=== PATIENT | female | born 2000 | race Two or more races ===

== ENCOUNTER 2024-08-17 14:30 | Inpatient (IN) | payer OTHER ==
[~2024-08-17] VITALS: Ht 157.5 cm; Wt 68.9 kg
[2024-08-22] VITALS (10 sets, daily range): BP systolic 104–141; BP diastolic 62–86
[2024-08-22] MEDS ORDERED: PRENATABS RX T1 EACH PO (11:50)
[2024-08-22] MEDS ORDERED: OXYTOCIN 20 UNITS/1000ML RL PIGGYBAG IV ONE ×2 (12:02→14:30)
[2024-08-22] MEDS ORDERED: LIDOCAINE HCL 1% 10ML VIAL ONE (12:02)
[2024-08-22] MEDS ORDERED: ERYTHROMYCIN BASE OPHT 1GM EACH TUBE OP ONE ×2 (12:02→14:30)
[2024-08-22] MEDS ORDERED: CHLORHEXIDINE GLUCONATE 120 ML BOTTLE TOP ONE ×2 (12:02→14:30)
[2024-08-22] MEDS ORDERED: RINGERS SOLUTION,LACTATED 1,000 ML IV SCH (12:15)
[2024-08-22 12:43] LABS: HEMATOCRIT 35.1 % (36.0-45.00); MEAN CELL VOLUME 79.1 fL (80.00-100.00); MEAN CORPUSCULAR HEMOGLOBIN 24.8 pg (27.00-32.0); MEAN CORPUSCULAR HGB CONC 31.4 g/dl (32.0-36.0); PLATELET COUNT 227 K/uL (150-450); RED BLOOD COUNT 4.44 M/uL (4.00-6.00)
[2024-08-22 13:14] LABS: INR < 0.93; PROTHROMBIN TIME 9.8 SECONDS (9.0-11.5)
[2024-08-22 13:27] LABS: ALBUMIN 2.7 gm/dL (3.4-5.0); BILIRUBIN TOTAL 0.43 mg/dL (0.3-1.2); CALCIUM 8.8 mg/dL (8.5-10.1); CREATININE SERUM 0.83 mg/dL (0.55-1.02); GFR 83.76; GLOBULINA 3.3 G/DL (2.4-3.5); POTASSIUM 4.22 mEq/L (3.5-5.1)
[2024-08-22 13:42] LABS: PARTIAL THROMBOPLASTIN TIME 40.9 SECONDS (22.0-34.0)
[2024-08-22] MEDS ORDERED: OxyCODONE HCL/APAP UD (PERCOCET) PO PRN (14:30)
[2024-08-22] MEDS ORDERED: ACETAMINOPHEN 325 MG TABLET PO PRN (14:30)
[2024-08-22] MEDS ORDERED: HYDROCORTISONE 2.5% 30 GM TUBE RECTAL SCH (17:00)
[2024-08-22] MEDS ORDERED: BENZOCAINE/MENTHOL 90 ML BOTTLE TOP SCH (17:00)
[2024-08-23 00:16] VITALS: BP 111/69
[2024-08-23 01:30] LABS: HEMATOCRIT 30.8 % (36.0-45.00); MEAN CELL VOLUME 78.7 fL (80.00-100.00); MEAN CORPUSCULAR HEMOGLOBIN 25.3 pg (27.00-32.0); MEAN CORPUSCULAR HGB CONC 32.1 g/dl (32.0-36.0); PLATELET COUNT 206 K/uL (150-450); RED BLOOD COUNT 3.91 M/uL (4.00-6.00); RED CELL DISTRIBUTION WIDTH 15.9 % (11.5-14.5)
[2024-08-23 01:36] LABS: HEMOGLOBIN 9.9 g/dL (12.0-15.00)
[2024-08-23 08:03] VITALS: BP 99/62
[2024-08-23 16:00] VITALS: BP 100/65
[2024-08-24] VITALS: BP 1112/73
[2024-08-24 08:41] VITALS: BP 100/65
== END 2024-08-24 16:53 | disposition home or self-care (01) | DRG 807 ==
LOC: LDR 08-22 11:40 → OB/GYN 08-22 13:25 → LDR 08-25 14:30
PROVIDERS: ADMIT Specialist; ATTEND Specialist
PROC: 10E0XZZ Delivery of Products of Conception, External Approach (ICD-10-PCS; principal; 2024-08-22)
PROC: 0HQ9XZZ Repair Perineum Skin, External Approach (ICD-10-PCS; 2024-08-22)
PROC: 4A1HXCZ Monitoring of Products of Conception, Cardiac Rate, External Approach (ICD-10-PCS; 2024-08-22)
DX: O70.0 First degree perineal laceration during delivery (principal); Z37.0 Single live birth; O69.81X0 Labor and delivery complicated by cord around neck, without compression, not applicable or unspecified; Z3A.39 39 weeks gestation of pregnancy